=== PATIENT | female | born 1930 | race Caucasian/White ===

== ENCOUNTER 2018-09-21 21:00 | Emergency (ER) | payer MEDICARE, OTHER ==
[2018-09-21 21:00] VITALS: O2SAT 98
[2018-09-21 22:02] VITALS: BP 171/74; PULSE 80; RESP 18; TEMP 98.1
== END 2018-09-21 22:24 | disposition home or self-care (01) | DRG 605 ==
LOC: ED 21:00
DX: S81.852A Open bite, left lower leg, initial encounter (principal); W54.0XXA Bitten by dog, initial encounter
CPT/HCPCS: 99282; A6232; A6402